=== PATIENT | female | born 1995 | race Caucasian/White ===

== ENCOUNTER 2022-04-20 09:12 | Emergency (ER) | payer MEDICAID ==
[~2022-04-20] VITALS: Ht 160 cm; Wt 127.9 kg
[2022-04-20 09:14] VITALS: BP_SYST 160; BP_SYST 92; BP_DIAS 92
--- NOTE | 2022-04-20 09:18 | NUR ---
PT AMB TO BED 12.
[2022-04-20] MEDS ORDERED: KETOROLAC 60 MG/2 ML VIAL IM ONE (09:25)
--- NOTE | 2022-04-20 09:26 | NUR ---
pt unable to give urine at this time
--- NOTE | 2022-04-20 09:27 | NUR ---
pt given water at this time. denies nausea and vomiting
--- NOTE | 2022-04-20 09:54 | NUR ---
26 y/o female bib self from home, pt presents to ed with new onset of ruq abdominal pain this morning. pt is currently denying any other s/s. pt denies cough, fevers, chills, sob, n/v/d. a&ox4, ambulatory with steady gait. denies dysuria and hematuria. pmh: denies nka
[2022-04-20 10:34] LABS: BASOPHILS % (AUTO) 0.3 % (0.0-2.0); EOSINOPHILS # (AUTO) 0.1 K/uL (0-0.4); EOSINOPHILS % (AUTO) 0.6 % (0.0-4.0); HEMOGLOBIN 12.3 g/dL (12.0-16.0); LYMPHOCYTES # (AUTO) 1.6 K/uL (2.5-16.5); LYMPHOCYTES % (AUTO) 15.5 % (20.5-51.1); MEAN CORPUSCULAR HEMOGLOBIN 26 pg (27-31); MEAN CORPUSCULAR HGB CONC 32 g/dL (33-37); MEAN CORPUSCULAR VOLUME 78.9 fL (80-94); MONOCYTES # (AUTO) 0.4 K/uL (0.8-1.0); MONOCYTES % (AUTO) 4.3 % (1.7-9.3); NEUTROPHILS % (AUTO) 79.3 % (42.2-75.2); PLATELET COUNT (AUTO) 376 K/uL (140-450); RED BLOOD CELL COUNT(AUTO) 4.81 MIL/uL (4.20-5.40); RED CELL DISTRIBUTION WIDTH 16.3 % (11.6-13.7); WHITE BLOOD COUNT (AUTO) 10.1 K/uL (4.8-10.8)
--- NOTE | 2022-04-20 10:35 | NUR ---
Ultrasound at bedside.
[2022-04-20 10:38] LABS: APPEARANCE,URINE SL CLOUDY (CLEAR); BILIRUBIN,URINE NEGATIVE (NEGATIVE); BLOOD, URINE NEGATIVE (NEGATIVE); COLOR,URINE YELLOW (YELLOW); LEUKOCYTE ESTERASE ,URINE NEGATIVE (NEGATIVE); NITRITE, URINE NEGATIVE (NEGATIVE); PH,URINE 6.5 (5.0-9.0); UGLUCOSE NEGATIVE (NEGATIVE)
[2022-04-20 11:18] LABS: ALBUMIN 3.5 g/dL (3.4-5.0); ANION GAP 14.7 (8-16); CARBON DIOXIDE 27.5 mmol/L (21-32); CREATININE 0.7 mg/dL (0.6-1.3); POTASSIUM 4.2 mmol/L (3.5-5.1); TOTAL BILIRUBIN 0.2 mg/dL (0.0-1.0)
[2022-04-20] MEDS ORDERED: IBUP-2213 PO (11:46)
[2022-04-20 12:16] VITALS: BP 109/70
--- NOTE | 2022-04-20 12:16 | NUR ---
Patient discharged with v/s stable. Written and verbal after care instructions given and explained. Patient alert, oriented and verbalized understanding of instructions. Ambulatory with steady gait. All questions addressed prior to discharge. ID band removed. Patient advised to follow up with PMD. Rx of ibuprofen (Sent) given. Patient educated on indication of medication including possible reaction and side effects. Opportunity to ask questions provided and answered. copy of labs and us given
== END 2022-04-20 12:16 | disposition home or self-care (01) ==
LOC: MED 09:12
DX: R10.11 Right upper quadrant pain (principal); R11.2 Nausea with vomiting, unspecified; R19.7 Diarrhea, unspecified; F12.90 Cannabis use, unspecified, uncomplicated; Z98.890 Other specified postprocedural states
CPT/HCPCS: 36415; 76705; 80053; 81003; 81025; 83690; 85025; 96372; 99284; J1885; Q0092

== ENCOUNTER 2022-06-24 23:01 | Emergency (ER) | payer MEDICAID ==
[~2022-06-24] VITALS: Ht 160 cm; Wt 128.4 kg
[~2022-06-24 23:01] MED LIST: IBUP-2213 PO
[2022-06-24 23:15] VITALS: BP 124/68
--- NOTE | 2022-06-24 23:19 | NUR ---
ABDOMINAL PAIN X3 DAYS.
--- NOTE | 2022-06-24 23:50 | NUR ---
PT TAKEN TO BED #1
[2022-06-25 00:27] LABS: BASOPHILS # (AUTO) 0.1 K/uL (0.00-0.22); BASOPHILS % (AUTO) 0.5 % (0.0-2.0); EOSINOPHILS # (AUTO) 0.4 K/uL (0-0.4); EOSINOPHILS % (AUTO) 3.1 % (0.0-4.0); HEMATOCRIT 30.9 % (36-48); HEMOGLOBIN 9.7 g/dL (12.0-16.0); LYMPHOCYTES # (AUTO) 3.7 K/uL (2.5-16.5); LYMPHOCYTES % (AUTO) 32.5 % (20.5-51.1); MEAN CORPUSCULAR HEMOGLOBIN 25 pg (27-31); MEAN CORPUSCULAR HGB CONC 31 g/dL (33-37); MEAN CORPUSCULAR VOLUME 79.9 fL (80-94); MONOCYTES # (AUTO) 0.7 K/uL (0.8-1.0); MONOCYTES % (AUTO) 5.8 % (1.7-9.3); NEUTROPHILS # (AUTO) 6.7 K/uL (1.8-7.7); NEUTROPHILS % (AUTO) 58.1 % (42.2-75.2); PLATELET COUNT (AUTO) 415 K/uL (140-450); RED BLOOD CELL COUNT(AUTO) 3.87 MIL/uL (4.20-5.40); WHITE BLOOD COUNT (AUTO) 11.5 K/uL (4.8-10.8)
[2022-06-25 00:30] LABS: APPEARANCE,URINE CLEAR (CLEAR); BILIRUBIN,URINE NEGATIVE (NEGATIVE); BLOOD, URINE 3+ (NEGATIVE); COLOR,URINE YELLOW (YELLOW); LEUKOCYTE ESTERASE ,URINE NEGATIVE (NEGATIVE); NITRITE, URINE NEGATIVE (NEGATIVE); PH,URINE 6.5 (5.0-9.0); UGLUCOSE NEGATIVE (NEGATIVE)
[2022-06-25 00:36] LABS: RBC,URINE 0-5 /HPF (0-5); WBC,URINE 0-5 /HPF (0-5)
[2022-06-25 00:57] LABS: ALBUMIN 3.2 g/dL (3.4-5.0); ANION GAP 8.2 (8-16); CARBON DIOXIDE 30.7 mmol/L (21-32); CREATININE 0.6 mg/dL (0.6-1.3); POTASSIUM 3.9 mmol/L (3.5-5.1); TOTAL BILIRUBIN 0.1 mg/dL (0.0-1.0)
[2022-06-25] MEDS ORDERED: HYDR-2734 TP (01:09)
[2022-06-25] MEDS ORDERED: POLY17PD72 PO (01:09)
[2022-06-25] MEDS ORDERED: CEPH-588 PO (01:09)
== END 2022-06-25 01:22 | disposition home or self-care (01) ==
LOC: MED 23:01
DX: N30.00 Acute cystitis without hematuria (principal); K64.9 Unspecified hemorrhoids; N93.8 Other specified abnormal uterine and vaginal bleeding; D64.9 Anemia, unspecified; Z79.899 Other long term (current) drug therapy; Z98.890 Other specified postprocedural states
CPT/HCPCS: 36415; 80053; 81001; 81025; 85025; 87086; 99283

== ENCOUNTER 2022-08-14 09:52 | Emergency (ER) | payer MEDICAID ==
[~2022-08-14] VITALS: Ht 160 cm; Wt 126.6 kg
[~2022-08-14 09:52] MED LIST changes: +CEPH-588 PO; +HYDR-2734 TP; +POLY17PD72 PO
[2022-08-14 10:00] VITALS: BP 113/72
--- NOTE | 2022-08-14 10:14 | NUR ---
26 Y/O FEMALE BIB SELF C/O LEFT SIDED WATERMAN X5DAYS AND BRIGHT RED BLOOD FROM RECTUM X1 MONTH NKA PMH: HEMORRHOIDS
--- NOTE | 2022-08-14 10:39 | NUR ---
LAB AT SIDE
[2022-08-14 10:44] LABS: BASOPHILS % (AUTO) 0.4 % (0.0-2.0); EOSINOPHILS # (AUTO) 0.3 K/uL (0-0.4); EOSINOPHILS % (AUTO) 2.4 % (0.0-4.0); HEMATOCRIT 35.9 % (36-48); HEMOGLOBIN 11.2 g/dL (12.0-16.0); LYMPHOCYTES # (AUTO) 2.3 K/uL (2.5-16.5); LYMPHOCYTES % (AUTO) 21.7 % (20.5-51.1); MEAN CORPUSCULAR HEMOGLOBIN 24 pg (27-31); MEAN CORPUSCULAR HGB CONC 31 g/dL (33-37); MONOCYTES # (AUTO) 0.5 K/uL (0.8-1.0); MONOCYTES % (AUTO) 4.6 % (1.7-9.3); NEUTROPHILS # (AUTO) 7.6 K/uL (1.8-7.7); NEUTROPHILS % (AUTO) 70.9 % (42.2-75.2); PLATELET COUNT (AUTO) 410 K/uL (140-450); RED BLOOD CELL COUNT(AUTO) 4.66 MIL/uL (4.20-5.40); RED CELL DISTRIBUTION WIDTH 15.6 % (11.6-13.7); WHITE BLOOD COUNT (AUTO) 10.7 K/uL (4.8-10.8)
[2022-08-14 11:03] LABS: ALBUMIN 3.2 g/dL (3.4-5.0); ANION GAP 11.2 (8-16); CARBON DIOXIDE 29.4 mmol/L (21-32); CREATININE 0.6 mg/dL (0.6-1.3); POTASSIUM 4.6 mmol/L (3.5-5.1); TOTAL BILIRUBIN 0.1 mg/dL (0.0-1.0)
--- NOTE | 2022-08-14 11:27 | NUR ---
PATIENT AMBULATED TO BED 6.
--- NOTE | 2022-08-14 12:05 | NUR ---
Patient being evaluated by physician at bedside.
[2022-08-14] MEDS ORDERED: KETOROLAC 60 MG/2 ML VIAL IM ONE (12:10)
[2022-08-14] MEDS ORDERED: IBUP-2213 PO (12:29)
[2022-08-14] MEDS ORDERED: DOCU-299 PO (12:29)
[2022-08-14] MEDS ORDERED: ACET-8905 PO (12:29)
[2022-08-14] MEDS ORDERED: HYDR-2734 TP (12:29)
[2022-08-14 12:45] VITALS: BP 147/99
--- NOTE | 2022-08-14 12:45 | NUR ---
Patient discharged with v/s stable. Written and verbal after care instructions given and explained. Patient alert, oriented and verbalized understanding of instructions. Ambulatory with steady gait. All questions addressed prior to discharge. ID band removed. Patient advised to follow up with PMD. Rx of Hydrocodone/Acetaminophen, Colace, Hydrocortisone and Ibuprofen given. Patient educated on indication of medication including possible reaction and side effects. Opportunity to ask questions provided and answered.
== END 2022-08-14 12:45 | disposition home or self-care (01) ==
LOC: MED 09:52
DX: R51.9 Headache, unspecified (principal); K64.9 Unspecified hemorrhoids; M54.2 Cervicalgia; F12.90 Cannabis use, unspecified, uncomplicated; Z79.899 Other long term (current) drug therapy; Z98.890 Other specified postprocedural states
CPT/HCPCS: 36415; 80053; 81025; 83690; 85025; 96372; 99283; J1885